=== PATIENT | female | born 1985 | race Caucasian/White ===

== ENCOUNTER 2017-05-15 09:23 | Emergency (ER) | payer SELFPAY ==
[2017-05-15] MEDS ORDERED: Benzonatate 100 MG Cap ONE (10:05)
--- NOTE | 2017-05-15 10:11 | EDM.PDOC ---
ED HPI GENERAL MEDICAL PROBLEM - General Stated Complaint: sore throat Time Seen by Provider: 05/15/17 09:30 Source of Information: Reports: Patient History Limitations: Reports: No Limitations - History of Present Illness INITIAL COMMENTS - FREE TEXT/NARRATIVE: According to patient she has been having nasal congestion and stuffiness with cough going on for past 5 days now. Cough is worse at night and is asso with mucoid greenish sputum. Has had low grade fever on and off. No body ache or myalgia. Pt was seen in the clinic on 05/13/17 and was started on Augmentin by Her primary care provider. Pt claims that her symptoms have not improved and her throat still hurts. + post nasal drip. No wheezing, or shortness of breath. Duration: Day(s): (5), Getting Worse, Waxing/Waning Severity: Moderate Associated Symptoms: Reports: Cough, Fever/Chills, Headaches, Nausea/Vomiting. Denies: Confusion, Chest Pain, Rash, Seizure, Shortness of Breath, Syncope, Weakness ED ROS GENERAL - Review of Systems Review Of Systems: See Below Constitutional: Reports: Fever, Weakness. Denies: Chills HEENT: Reports: Rhinitis, Throat Pain, Vertigo. Denies: Throat Swelling Respiratory: Reports: Cough, Sputum. Denies: Shortness of Breath, Wheezing, Pleuritic Chest Pain Cardiovascular: Denies: Chest Pain, Lightheadedness Endocrine: Denies: Fatigue GI/Abdominal: Reports: Nausea. Denies: Abdominal Pain, Vomiting : Denies: Flank Pain, Frequency Musculoskeletal: Denies: Joint Pain, Joint Swelling Skin: Denies: Bruising, Pruritis, Rash ED EXAM, GENERAL - Physical Exam Exam: See Below Exam Limited By: No Limitations General Appearance: Alert, WD/WN, No Apparent Distress Eye Exam: Bilateral Eye: EOMI, PERRL Ears: Normal External Exam, Normal Canal, Hearing Grossly Normal, Normal TMs Ear Exam: Bilateral Ear: TM Bulging Nose: Nasal Drainage, Nasal Flaring. No: Nasal Tenderness Throat/Mouth: Normal Inspection, Normal Teeth, Normal Gums, Normal Oropharynx, Normal Voice Head: Atraumatic, Normocephalic, Sinus Tenderness (frontal) Neck: Normal Inspection, Supple, Non-Tender, Full Range of Motion Respiratory/Chest: No Respiratory Distress, Lungs Clear, Normal Breath Sounds, No Accessory Muscle Use, Chest Non-Tender Cardiovascular: Normal Peripheral Pulses, Regular Rate, Rhythm, No Edema, No Gallop, No JVD, No Murmur, No Rub Course - Vital Signs Text/Narrative:: CBC is normal. Strep and [place] spot test are negative. Pt has viral URi with pharyngitis. I have discussed the patho-physiology of the URI with patient. As she has been started on Augmentin, she could continue the medication. Advised steam inhalations 2-3 times daily to help drain the sinus and upper respiratory and sinus drainage. Zyrtec 10mg daily. Vit C 100mg daily. Continue augmentin. rest an dehydration. Tessolon pearls 100mg 3 times daily. It should takes its natural course and improve in 7-10 days. IF not better followup in clinic with her Primary care provider. - Orders/Labs/Meds Orders: Active Orders 24 hr Category Date Time Status CBC WITH AUTO DIFF [HEME] Stat Lab 05/15/17 09:59 Ordered MONONUCLEOSIS SCREEN [CHEM] Stat Lab 05/15/17 09:59 Ordered STREP SCRN A RAPID W CULT CONF [RM] Stat Lab 05/15/17 09:59 Uncollected Departure - Departure Time of Disposition: 10:30 Disposition: Home, Self-Care 01 Condition: Good Clinical Impression: Pharyngitis with viral syndrome - Discharge Information Referrals: PCP,None [Primary Care Provider] - Additional Instructions: Advised steam inhalations 2-3 times daily to help drain the sinus and upper respiratory and sinus drainage. Zyrtec 10mg daily. Vit C 100mg daily. Continue augmentin. rest an dehydration. Tessolon pearls 100mg 3 times daily. It should takes its natural course and improve in 7-10 days. IF not better followup in clinic with her Primary care provider. - Problem List & Annotations (1) Pharyngitis with viral syndrome SNOMED Code(s): 0488037 Code(s): J02.9 - ACUTE PHARYNGITIS, UNSPECIFIED; B34.9 - VIRAL INFECTION, UNSPECIFIED Status: Acute Current Visit: Yes - Problem List Review Problem List Initiated/Reviewed/Updated: Yes - My Orders Last 24 Hours: My Active Orders 05/15/17 09:59 CBC WITH AUTO DIFF [HEME] Stat MONONUCLEOSIS SCREEN [CHEM] Stat STREP SCRN A RAPID W CULT CONF [RM] Stat - Assessment/Plan Last 24 Hours: My Active Orders 05/15/17 09:59 CBC WITH AUTO DIFF [HEME] Stat MONONUCLEOSIS SCREEN [CHEM] Stat STREP SCRN A RAPID W CULT CONF [RM] Stat Assessment:: Viral syndrome with pharyngitis. Plan: Advised steam inhalations 2-3 times daily to help drain the sinus and upper respiratory and sinus drainage. Zyrtec 10mg daily. Vit C 100mg daily. Continue augmentin. rest an dehydration. Tessolon pearls 100mg 3 times daily. It should takes its natural course and improve in 7-10 days. IF not better followup in clinic with her Primary care provider.
== END 2017-05-15 10:33 | disposition home or self-care (01) ==
LOC: LB.ED 09:23
DX: J02.8 Acute pharyngitis due to other specified organisms (principal); B34.9 Viral infection, unspecified
CPT/HCPCS: 36415; 85025; 86308; 87430; 99282; 99283; A9270-GY

== ENCOUNTER 2017-06-27 14:26 | Emergency (ER) | payer SELFPAY ==
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
--- NOTE | 2017-06-27 19:20 | CR ---
DATE OF SERVICE: 06/27/2017 CLINICAL DATA: Right wrist pain. RIGHT HAND: There is soft tissue swelling over the dorsum of the hand. No acute fracture or dislocation. No lytic or blastic bone lesions. [id number] MTDD
== END 2017-06-27 15:15 | disposition home or self-care (01) ==
LOC: LB.ED 14:26
DX: S69.81XA Other specified injuries of right wrist, hand and finger(s), initial encounter (principal); F17.210 Nicotine dependence, cigarettes, uncomplicated; W22.8XXA Striking against or struck by other objects, initial encounter
CPT/HCPCS: 73130-RT; 99283